=== PATIENT | female | born 1995 | race Two or more races ===

== ENCOUNTER 2019-04-18 07:31 | Emergency (ER) | payer MEDICAID, OTHER ==
[~2019-04-18] VITALS: Ht 167.6 cm; Wt 81.6 kg
[2019-04-18 07:54] VITALS: BP 120/70
== END 2019-04-18 08:37 | disposition home or self-care (01) ==
LOC: ER 07:34
DX: S60.221A Contusion of right hand, initial encounter (principal); F17.210 Nicotine dependence, cigarettes, uncomplicated; Z87.821 Personal history of retained foreign body fully removed; Y04.0XXA Assault by unarmed brawl or fight, initial encounter; Y93.89 Activity, other specified; Y92.89 Other specified places as the place of occurrence of the external cause; Y99.8 Other external cause status
CPT/HCPCS: 73130